=== PATIENT | male | born 1995 | race Caucasian/White ===

== ENCOUNTER 2022-02-26 15:21 | Outpatient (CLI) | payer OTHER, SELFPAY ==
--- NOTE | 2022-02-26 16:15 | CRLHL7_ITS ---
For Patients: As a result of the Century Cures Act, medical imaging exams and procedure reports are released immediately into your electronic medical record. You may view this report before your referring provider. If you have questions, please contact your health care provider. Indication: Headaches. Technique: 3D [id number] volumetric image acquisition. MIP reconstructions with rotational presentation. No IV contrast. Comparison: MRA neck the same day. Findings: No hemodynamic significant stenosis or occlusion involving the intra cerebral vasculature. There is a 2 mm outpouching arising laterally from the cavernous segment of the right internal carotid artery. Impression: 1. Small, 2 mm, outpouching arising laterally from the cavernous segment of the right ICA concerning for aneurysm. 2. No hemodynamically significant stenosis or occlusion. Recommend consultation with the [facility] neurointerventional clinic for enrollment in the aneurysm surveillance program. This can be arranged by calling [phone]. Dictated by Jack Avitia MD @ 02/26/2022 5:31:59 PM (Electronically Signed)
--- NOTE | 2022-02-26 16:30 | CRLHL7_ITS ---
For Patients: As a result of the Century Cures Act, medical imaging exams and procedure reports are released immediately into your electronic medical record. You may view this report before your referring provider. If you have questions, please contact your health care provider. Indication: Headaches. Technique: 3D [id number] image acquisitions performed before and after IV gadolinium. MIP reconstructions with rotational presentation. Contrast: 15 cc Dotarem. Comparison: MRA Head the same day. Findings: No evidence for hemodynamically significant internal carotid artery stenosis by NASCET criteria. The cervical segments of both vertebral arteries are patent. The visualized portions of the aortic arch, great vessel origins and proximal subclavian arteries are unremarkable. Impression: 1. No evidence for hemodynamically significant ICA stenosis by NASCET criteria. 2. No evidence for carotid or vertebral artery dissection in the neck. Dictated by Jack Avitia MD @ 02/26/2022 5:35:14 PM (Electronically Signed)
== END 2022-02-26 15:22 | disposition home or self-care (01) ==
PROVIDERS: PCP Family Medicine; Visit Provider Family Medicine
DX: R51.9 Headache, unspecified (principal); I77.89 Other specified disorders of arteries and arterioles
CPT/HCPCS: 70544; 70549; A9575

== ENCOUNTER 2022-12-09 16:13 | Outpatient (CLI) | payer OTHER, SELFPAY ==
--- NOTE | 2022-12-09 16:30 | CRLHL7_ITS ---
For Patients: As a result of the Century Cures Act, medical imaging exams and procedure reports are released immediately into your electronic medical record. You may view this report before your referring provider. If you have questions, please contact your health care provider. Indication: Headaches, follow-up aneurysm Technique: 3D Upjw-eo-aafadw MR angiogram of the [id number]-lk-[id number] with 3-dimensional MIP projections were submitted. Axial diffusion weighted images were also obtained. Comparison: MRA head 02/26/2022 Findings: The visualized first and second order intracranial vessels are grossly patent. Incidental origin left DISMANTLER. No occlusion/filling defect or acquired arterial stenosis identified. Stable 2 mm laterally directed outpouching from the right cavernous ICA. No abnormal restricted diffusion. Impression: 1. Stable 2 mm laterally directed outpouching from the right cavernous ICA, suspicious for aneurysm. 2. No significant interval change relative to 02/26/2022. No abnormal restricted diffusion. Dictated by Sera Chandra MD @ 12/09/2022 7:01:07 PM (Electronically Signed)
== END 2022-12-09 16:14 | disposition home or self-care (01) ==
PROVIDERS: PCP Family Medicine; Visit Provider Family Medicine
DX: R51.9 Headache, unspecified (principal)
CPT/HCPCS: 70544